=== PATIENT | male | born 1965 | race African-American/Black ===

== ENCOUNTER 2024-07-08 10:11 | Emergency (ER) | payer MEDICAID ==
[~2024-07-08] VITALS: Ht 175.3 cm; Wt 52.8 kg
[~2024-07-08 10:11] MED LIST: IBUP-1454 PO
[2024-07-08 10:37] VITALS: BP 121/86; PULSE 100; RESP 16; TEMP 98; O2SAT 100
[2024-07-08] MEDS ORDERED: HYDR-4902 PO (11:05)
[2024-07-08] MEDS: HYDROcodone-ACET 5/325MG TAB PO ONE (11:15)
== END 2024-07-08 11:20 | disposition home or self-care (01) ==
LOC: ER 10:11
DX: S43.402A Unspecified sprain of left shoulder joint, initial encounter (principal); S01.91XD Laceration without foreign body of unspecified part of head, subsequent encounter; Z79.899 Other long term (current) drug therapy; W18.39XA Other fall on same level, initial encounter; Y93.89 Activity, other specified; Y92.89 Other specified places as the place of occurrence of the external cause; Y99.8 Other external cause status